=== PATIENT | female | born 1955 | race Two or more races ===

== ENCOUNTER 2019-03-27 18:36 | Emergency (ER) | payer MEDICAID, MEDICARE ==
[~2019-03-27] VITALS: Ht 154.9 cm; Wt 77.3 kg
--- NOTE | 2019-03-27 20:36 | NUR ---
Pt has no change in condition. Pt continues to rate the discomfort in her left eye 7/10. BP remains elelvated. Pt is awaiting provider evaluation.
[2019-03-27] MEDS ORDERED: labetalol 100mg tablet PO STA (21:36)
[2019-03-27] MEDS ORDERED: ibuprofen tablet 400 MG TABLET PO ONE (21:40)
--- NOTE | 2019-03-27 22:37 | NUR ---
Pt reports feeling like headache and pressure in the left eye are significantly improved.
[2019-03-27 23:15] VITALS: BP 168/102
== END 2019-03-27 23:20 | disposition home or self-care (01) ==
LOC: ER 18:37
DX: H11.32 Conjunctival hemorrhage, left eye (principal); I10 Essential (primary) hypertension
CPT/HCPCS: 99284

== ENCOUNTER 2019-04-15 03:21 | Emergency (ER) | payer MEDICARE ==
[~2019-04-15] VITALS: Ht 154.9 cm; Wt 81.8 kg
[2019-04-15 04:08] LABS: BASOPHILS # (AUTO) 0.1 X10'3 (0-0.2); BASOPHILS % (AUTO) 0.8 % (0-1); EOSINOPHILS # (AUTO) 0.6 X10'3 (0-0.9); EOSINOPHILS % (AUTO) 8.7 % (0-6); HEMATOCRIT 40.9 % (35.0-45.0); LYMPHOCYTES # (AUTO) 2.3 X10'3 (1.1-4.8); MEAN CORPUSCULAR HGB CONC 34.3 g/dL (33.0-36.5); MEAN CORPUSCULAR VOLUME 90.6 FL (78-98); MEAN PLATELET VOLUME 9.1 FL (7.4-10.4); MONOCYTES # (AUTO) 0.6 X10'3 (0-0.9); MONOCYTES % (AUTO) 8.8 % (2-12); NEUTROPHILS # (AUTO) 3.6 X10'3 (1.8-7.7); NEUTROPHILS % (AUTO) 49.7 % (42-75); PLATELET COUNT 176 X10'3 (140-440); RED BLOOD COUNT 4.51 X10'6 (4.20-5.60); RED CELL DISTRIBUTION WIDTH 13.2 % (11.5-14.5); WHITE BLOOD COUNT 7.1 X10'3 (4.5-11.0)
[2019-04-15 04:19] LABS: PARTIAL THROMBOPLASTIN TIME 27 SECONDS (22-32)
[2019-04-15 04:32] LABS: ALANINE AMINOTRANSFERASE 19 U/L (12-78); ALBUMIN 3.6 G/DL (3.4-5.0); ALKALINE PHOSPHATASE 109 IU/L (46-116); ANION GAP 8 (8-16); ASPARTATE AMINO TRANSFERASE 0 U/L (10-37); BILIRUBIN,TOTAL 0.2 MG/DL (0.1-1.0); BLOOD UREA NITROGEN 15 MG/DL (7-18); BUN/CREATININE RATIO 19.7 (6.6-38.0); CALCIUM 9.9 MG/DL (8.5-10.1); CHLORIDE 105 MMOL/L (99-107); CREATININE 0.76 MG/DL (0.40-0.90); GLUCOSE 127 MG/DL (70-104); SODIUM 141 MMOL/L (135-145); TOTAL CARBON DIOXIDE 27.6 MMOL/L (24-32); TOTAL PROTEIN 7.2 G/DL (6.4-8.2); eGFR 76 ML/MIN
[2019-04-15] MEDS ORDERED: normal saline 1000ml 1,000 ML IV ONE (04:49)
[2019-04-15] MEDS ORDERED: morphine 4 MG/ML inj SYRINge IV ONE (04:50)
[2019-04-15] MEDS ORDERED: hydrALAZINE 20mg/ml inj. IV ONE (04:50)
[2019-04-15] MEDS ORDERED: hyDRALAzine 10mg tablet PO ONE (04:50)
[2019-04-15] MEDS ORDERED: hyDRALAzine 10mg tablet PO SCH (04:50)
[2019-04-15] MEDS: metoprolol tartrate 1mg/ml inj IV SCH ×3 (05:00→05:20)
[2019-04-15] MEDS ORDERED: iohexol 350MG/ML 100ml bottle IV ONE (05:08)
[2019-04-15] MEDS ORDERED: SUCR1TAB34 PO (06:17)
[2019-04-15 06:36] VITALS: BP 151/91
[2019-04-15 06:36] LABS: LIPASE 177 U/L (73-393)
== END 2019-04-15 06:41 | disposition home or self-care (01) ==
LOC: ER 03:22
DX: R07.89 Other chest pain (principal); I10 Essential (primary) hypertension; Z98.890 Other specified postprocedural states
CPT/HCPCS: 36415; 71045; 71275; 74175; 80053; 83690; 84484; 85025; 85610; 85730; 93005; 96374; 96375; 99284; J0360; J2270; J7030; Q9967; J3490

== ENCOUNTER 2020-06-14 18:47 | Emergency (ER) | payer MEDICARE, BC ==
[~2020-06-14] VITALS: Ht 154.9 cm; Wt 75.9 kg
[~2020-06-14 18:47] MED LIST: SUCR1TAB34 PO
[2020-06-14 19:25] LABS: BASOPHILS # (AUTO) 0.1 X10'3 (0-0.2); BASOPHILS % (AUTO) 0.9 % (0-1); EOSINOPHILS # (AUTO) 0.1 X10'3 (0-0.9); EOSINOPHILS % (AUTO) 1.6 % (0-6); HEMATOCRIT 43.6 % (35.0-45.0); LYMPHOCYTES # (AUTO) 2.2 X10'3 (1.1-4.8); LYMPHOCYTES % (AUTO) 23.3 % (21-51); MEAN CORPUSCULAR HEMOGLOBIN 31.5 PG (27.0-31.0); MEAN CORPUSCULAR HGB CONC 34.5 g/dL (33.0-36.5); MEAN CORPUSCULAR VOLUME 91.3 FL (78-98); MEAN PLATELET VOLUME 9.4 FL (7.4-10.4); MONOCYTES # (AUTO) 0.6 X10'3 (0-0.9); MONOCYTES % (AUTO) 6.8 % (2-12); NEUTROPHILS # (AUTO) 6.3 X10'3 (1.8-7.7); NEUTROPHILS % (AUTO) 67.4 % (42-75); PLATELET COUNT 196 X10'3 (140-440); RED BLOOD COUNT 4.77 X10'6 (4.20-5.60); WHITE BLOOD COUNT 9.3 X10'3 (4.5-11.0)
[2020-06-14] MEDS ORDERED: mag hydrox/Alum hydrox/simeth 30ml oral suspension PO ONE (19:45)
[2020-06-14] MEDS ORDERED: LIDOcaine Viscous 15ml cup MM ONE (19:45)
[2020-06-14 19:47] LABS: ALANINE AMINOTRANSFERASE 31 U/L (12-78); ALBUMIN 4.1 G/DL (3.4-5.0); ALBUMIN/GLOBULIN RATIO 1.1 (1.1-1.5); ALKALINE PHOSPHATASE 98 IU/L (46-116); ANION GAP 12 (8-16); ASPARTATE AMINO TRANSFERASE 22 U/L (10-37); BILIRUBIN,TOTAL 0.6 MG/DL (0.1-1.0); BLOOD UREA NITROGEN 17 MG/DL (7-18); BUN/CREATININE RATIO 19.1 (6.6-38.0); CALCIUM 10.4 MG/DL (8.5-10.1); CHLORIDE 103 MMOL/L (99-107); CREATININE 0.89 MG/DL (0.40-0.90); GLUCOSE 102 MG/DL (70-104); LIPASE 91 U/L (73-393); POTASSIUM 4.8 MMOL/L (3.5-5.1); SODIUM 140 MMOL/L (135-145); TOTAL PROTEIN 7.7 G/DL (6.4-8.2); eGFR 63 ML/MIN
--- NOTE | 2020-06-14 20:00 | NUR ---
PT GIVEN MAALOX AND LIDOCAINE PO. PT REPORTED BRIEF, PARTIAL RELIEF FROM PAIN, BUT PAIN RETURNED SOON AFTERWARD. PT GIVEN MORPHINE 4 MG AND ZOFRAN 4 MG. PT REPORTS SOME RELIEF, BUT IS STILL UNCOMFORTABLE
[2020-06-14] MEDS ORDERED: ondansetron/PF 4mg/2ml inj IV ONE ×2 (20:40→22:25)
[2020-06-14] MEDS ORDERED: morphine 4 MG/ML inj SYRINge IV ONE (20:40)
[2020-06-14] MEDS ORDERED: pantoprazole 40mg Tablet.DR PO ONE (22:20)
[2020-06-14] MEDS ORDERED: famotidine 20mg tablet PO ONE (22:20)
[2020-06-14] MEDS ORDERED: sucralfate 1 gm tablet PO ONE (22:25)
[2020-06-14 22:50] LABS: CLARITY,URINE CLEAR (Clear); COLOR,URINE YELLOW (Yellow); GLUCOSE, URINE NEGATIVE (Neg); KETONES,URINE NEGATIVE (Neg); LEUKOCYTE ESTERASE ,URINE NEGATIVE (Neg); NITRITES, URINE NEGATIVE (Neg); OCCULT BLOOD,URINE TRACE-LYSED (Neg); PH,URINE 7.5 (4.8-8.0); PROTEIN,URINE NEGATIVE (Neg); UROBILINOGEN,URINE 0.2 E.U/dL (0.2-1.0)
[2020-06-14 22:56] LABS: BACTERIA,URINE FEW /HPF (Neg); RBC,URINE 0-2 /HPF (0-2); SQUAMOUS EPITHELIAL CELL,UR FEW /LPF (FEW); UA COLLECTION TYPE CLN CATCH MIDSTREAM; WBC,URINE NONE SEEN /HPF (0-4)
[2020-06-14] MEDS ORDERED: PANT20TA18 PO (23:19)
[2020-06-14] MEDS ORDERED: ONDA4TAB6 PO (23:19)
[2020-06-14 23:39] VITALS: BP 123/77
== END 2020-06-14 23:41 | disposition home or self-care (01) ==
LOC: ER 18:48
DX: R07.89 Other chest pain (principal); R10.84 Generalized abdominal pain; R11.0 Nausea; I10 Essential (primary) hypertension; F17.200 Nicotine dependence, unspecified, uncomplicated; Z87.440 Personal history of urinary (tract) infections; Z98.890 Other specified postprocedural states; Z79.899 Other long term (current) drug therapy
CPT/HCPCS: 36415; 71045; 80053; 81001; 83690; 83880; 84484; 85025; 93005; 96374; 96375; 96376; 99285; J2270; J2405

== ENCOUNTER 2021-03-24 10:02 | Inpatient (IN) | payer MEDICARE, BC ==
[~2021-03-24] VITALS: Ht 152.4 cm; Wt 72.7 kg
[~2021-03-24 10:02] MED LIST changes: +ONDA4TAB6 PO; +PANT20TA18 PO
[2021-03-24] MEDS ORDERED: ALBUTEROL INHALER 1 PUFF/90 MCG INHALER IH STA (10:14)
[2021-03-24] MEDS ORDERED: dexamethasone sod phosphate 10mg/ml inj IV STA (10:14)
[2021-03-24] MEDS ORDERED: acetaminophen 325mg tablet PO ONE (10:40)
[2021-03-24 10:47] LABS: BASOPHILS % (AUTO) 0.2 % (0-1); EOSINOPHILS % (AUTO) 0 % (0-6); HEMATOCRIT 42.8 % (35.0-45.0); HEMOGLOBIN 14.3 g/dl (12.0-16.0); LYMPHOCYTES # (AUTO) 0.4 X10'3 (1.1-4.8); LYMPHOCYTES % (AUTO) 7.2 % (21-51); MEAN CORPUSCULAR HGB CONC 33.3 g/dL (33.0-36.5); MONOCYTES # (AUTO) 0.3 X10'3 (0-0.9); MONOCYTES % (AUTO) 6.9 % (2-12); NEUTROPHILS # (AUTO) 4.3 X10'3 (1.8-7.7); NEUTROPHILS % (AUTO) 85.7 % (42-75); PLATELET COUNT 146 X10'3 (140-440); RED BLOOD COUNT 4.76 X10'6 (4.20-5.60); RED CELL DISTRIBUTION WIDTH 13.6 % (11.5-14.5)
[2021-03-24 11:01] LABS: ALBUMIN 3.2 G/DL (3.4-5.0); ANION GAP 12 (8-16); BLOOD UREA NITROGEN 11 MG/DL (7-18); BUN/CREATININE RATIO 14.5 (6.6-38.0); CALCIUM 8.7 MG/DL (8.5-10.1); CHLORIDE 102 MMOL/L (99-107); CREATININE 0.76 MG/DL (0.40-0.90); GLUCOSE 101 MG/DL (70-104); POTASSIUM 3.6 MMOL/L (3.5-5.1); SODIUM 141 MMOL/L (135-145); TOTAL CARBON DIOXIDE 26.6 MMOL/L (24-32); eGFR 76 ML/MIN
[2021-03-24 11:02] LABS: D-DIMER 1.21 MG/L FEU (0-0.50)
--- NOTE | 2021-03-24 11:37 | NUR ---
BARRERA (DAUGHTER) [phone] PLEASE CALL TO UPDATE WHEN CAN.
[2021-03-24] MEDS ORDERED: iohexol 350MG/ML 100ml bottle IV ONE (12:09)
--- NOTE | 2021-03-24 12:43 | NUR ---
Zoe, pts sister left her contact number:
[2021-03-24] MEDS ORDERED: normal saline 1000ml 1,000 ML IV ONE (12:50)
[2021-03-24] MEDS ORDERED: acetaminophen 325mg tablet PO PRN (14:15)
[2021-03-24] MEDS ORDERED: ondansetron/PF 4mg/2ml inj IV PRN (14:15)
[2021-03-24] MEDS ORDERED: magnesium hydroxide 30ml (MOM) UD suspension PO PRN (14:15)
[2021-03-24] MEDS ORDERED: mag hydrox/Alum hydrox/simeth 30ml oral suspension PO PRN (14:15)
[2021-03-24] MEDS ORDERED: NO HOME MEDS PO (14:16)
--- NOTE | 2021-03-24 19:05 | NUR ---
ALTERNATIVE PHONE NUMBER FOR DAUGHTER BARRERA [phone]
--- NOTE | 2021-03-24 19:10 | NUR ---
GAVE PT HER MEAL TRAY AND DECREASED HER O2 FROM 6LPM NC TO 3LPM NC. SPO2 AFTER CHANGE IS 97%
[2021-03-24] MEDS: docusate sod 100mg capsule PO SCH (20:00)
[2021-03-24 21:30] VITALS: BP 127/85
[2021-03-24] MEDS: enoxaparin 40mg/0.4ml syringe SUBCUT SCH (21:59)
[2021-03-24] MEDS: morphine 2 MG/ML inj. syringe IV PRN (21:59)
[2021-03-24] MEDS: dexamethasone inj 6 MG in normal saline 50ml IV soln 50 ML IV SCH (22:00)
[2021-03-25 02:00] VITALS: BP 118/72
[2021-03-25 06:00] VITALS: BP 159/91
[2021-03-25 06:57] LABS: BASOPHILS % (AUTO) 0.1 % (0-1); EOSINOPHILS % (AUTO) 0 % (0-6); HEMATOCRIT 40.1 % (35.0-45.0); HEMOGLOBIN 13.4 g/dl (12.0-16.0); LYMPHOCYTES # (AUTO) 0.6 X10'3 (1.1-4.8); LYMPHOCYTES % (AUTO) 10.7 % (21-51); MEAN CORPUSCULAR HEMOGLOBIN 30.2 PG (27.0-31.0); MEAN CORPUSCULAR HGB CONC 33.4 g/dL (33.0-36.5); MEAN CORPUSCULAR VOLUME 90.5 FL (78-98); MEAN PLATELET VOLUME 9.3 FL (7.4-10.4); MONOCYTES # (AUTO) 0.4 X10'3 (0-0.9); MONOCYTES % (AUTO) 7.6 % (2-12); NEUTROPHILS # (AUTO) 4.5 X10'3 (1.8-7.7); NEUTROPHILS % (AUTO) 81.6 % (42-75); PLATELET COUNT 155 X10'3 (140-440); RED BLOOD COUNT 4.43 X10'6 (4.20-5.60); RED CELL DISTRIBUTION WIDTH 13.3 % (11.5-14.5); WHITE BLOOD COUNT 5.5 X10'3 (4.5-11.0)
[2021-03-25 07:29] LABS: ALBUMIN 2.5 G/DL (3.4-5.0); ANION GAP 12 (8-16); BLOOD UREA NITROGEN 21 MG/DL (7-18); BUN/CREATININE RATIO 28.4 (6.6-38.0); CALCIUM 8.7 MG/DL (8.5-10.1); CHLORIDE 108 MMOL/L (99-107); CREATININE 0.74 MG/DL (0.40-0.90); GLUCOSE 141 MG/DL (70-104); POTASSIUM 3.9 MMOL/L (3.5-5.1); SODIUM 144 MMOL/L (135-145); TOTAL CARBON DIOXIDE 23.9 MMOL/L (24-32); eGFR 78 ML/MIN
[2021-03-25] MEDS: docusate sod 100mg capsule PO SCH ×2 (07:53→19:49)
[2021-03-25] MEDS: enoxaparin 40mg/0.4ml syringe SUBCUT SCH ×2 (07:53→19:48)
[2021-03-25] MEDS: dexamethasone inj 6 MG in normal saline 50ml IV soln 50 ML IV SCH ×2 (07:54→19:49)
[2021-03-25 10:00] VITALS: BP 147/106
[2021-03-25 15:00] VITALS: BP 138/76
[2021-03-25 18:00] VITALS: BP 141/89
--- NOTE | 2021-03-25 18:30 | NUR ---
Patient in room [facility]TH[facility] 4006. I have received report from LUCIAN Dunaway and had the opportunity to ask questions and assume patient care. Patient is laying on hospital bed, just finished dinner. She complains of a headache 12/21, I advised her I would bring her some Tylenol and more water.
[2021-03-25 22:00] VITALS: BP 136/77
[2021-03-26 02:00] VITALS: BP 129/75
[2021-03-26 06:30] VITALS: BP 146/80
--- NOTE | 2021-03-26 06:49 | NUR ---
Problems reprioritized. Patient report given, questions answered & plan of care reviewed with LUCIAN Banuelos.
[2021-03-26] MEDS: docusate sod 100mg capsule PO SCH ×2 (08:33→19:23)
[2021-03-26 08:34] LABS: BASOPHILS % (AUTO) 0 % (0-1); EOSINOPHILS % (AUTO) 0 % (0-6); HEMATOCRIT 37.7 % (35.0-45.0); LYMPHOCYTES # (AUTO) 0.7 X10'3 (1.1-4.8); LYMPHOCYTES % (AUTO) 7.3 % (21-51); MEAN CORPUSCULAR HEMOGLOBIN 30.6 PG (27.0-31.0); MEAN CORPUSCULAR HGB CONC 34.6 g/dL (33.0-36.5); MEAN CORPUSCULAR VOLUME 88.4 FL (78-98); MEAN PLATELET VOLUME 9.8 FL (7.4-10.4); MONOCYTES # (AUTO) 0.7 X10'3 (0-0.9); MONOCYTES % (AUTO) 7.8 % (2-12); NEUTROPHILS # (AUTO) 7.7 X10'3 (1.8-7.7); NEUTROPHILS % (AUTO) 84.9 % (42-75); PLATELET COUNT 183 X10'3 (140-440); RED BLOOD COUNT 4.27 X10'6 (4.20-5.60); RED CELL DISTRIBUTION WIDTH 13.7 % (11.5-14.5)
[2021-03-26] MEDS: dexamethasone inj 6 MG in normal saline 50ml IV soln 50 ML IV SCH ×2 (08:34→19:23)
[2021-03-26] MEDS: enoxaparin 40mg/0.4ml syringe SUBCUT SCH ×2 (08:34→19:24)
[2021-03-26] MEDS: morphine 2 MG/ML inj. syringe IV PRN ×3 (08:35→19:37)
[2021-03-26 09:12] LABS: ALBUMIN 2.6 G/DL (3.4-5.0); ANION GAP 13 (8-16); BLOOD UREA NITROGEN 19 MG/DL (7-18); BUN/CREATININE RATIO 28.8 (6.6-38.0); CALCIUM 8.3 MG/DL (8.5-10.1); CHLORIDE 109 MMOL/L (99-107); CREATININE 0.66 MG/DL (0.40-0.90); GLUCOSE 116 MG/DL (70-104); POTASSIUM 3.8 MMOL/L (3.5-5.1); SODIUM 146 MMOL/L (135-145); TOTAL CARBON DIOXIDE 24.1 MMOL/L (24-32); eGFR 89 ML/MIN
[2021-03-26 10:00] VITALS: BP 156/88
[2021-03-26] MEDS ORDERED: guaiFENesin/DM/phenylephrine syrup 120ml bottle PO PRN (13:55)
[2021-03-26] MEDS: benzonatate 100mg capsule PO PRN (15:31)
--- NOTE | 2021-03-26 18:36 | NUR ---
Problems reprioritized. Patient report given, questions answered & plan of care reviewed with Jeny EPSTEIN.
[2021-03-26] MEDS: guaiFENesin/DM 10ml UD oral syrup PO PRN (19:23)
[2021-03-26 22:00] VITALS: BP 121/68
[2021-03-27 02:00] VITALS: BP 145/82
--- NOTE | 2021-03-27 06:21 | NUR ---
Problems reprioritized. Patient report given, questions answered & plan of care reviewed with Adela EPSTEIN.
[2021-03-27 06:49] VITALS: BP 156/78
[2021-03-27] MEDS: enoxaparin 40mg/0.4ml syringe SUBCUT SCH ×2 (07:56→20:02)
[2021-03-27] MEDS: dexamethasone inj 6 MG in normal saline 50ml IV soln 50 ML IV SCH ×2 (07:56→20:02)
[2021-03-27] MEDS: docusate sod 100mg capsule PO SCH ×2 (07:56→20:02)
[2021-03-27] MEDS: benzonatate 100mg capsule PO PRN ×3 (08:04→21:54)
[2021-03-27] MEDS: guaiFENesin/DM 10ml UD oral syrup PO PRN ×3 (08:04→21:54)
[2021-03-27 09:01] LABS: BASOPHILS % (AUTO) 0.2 % (0-1); EOSINOPHILS % (AUTO) 0.1 % (0-6); HEMATOCRIT 38.8 % (35.0-45.0); HEMOGLOBIN 12.9 g/dl (12.0-16.0); LYMPHOCYTES # (AUTO) 0.8 X10'3 (1.1-4.8); LYMPHOCYTES % (AUTO) 13.3 % (21-51); MEAN CORPUSCULAR HGB CONC 33.2 g/dL (33.0-36.5); MEAN CORPUSCULAR VOLUME 90.3 FL (78-98); MEAN PLATELET VOLUME 9.6 FL (7.4-10.4); MONOCYTES # (AUTO) 0.6 X10'3 (0-0.9); MONOCYTES % (AUTO) 10.8 % (2-12); NEUTROPHILS # (AUTO) 4.5 X10'3 (1.8-7.7); NEUTROPHILS % (AUTO) 75.6 % (42-75); PLATELET COUNT 194 X10'3 (140-440); RED BLOOD COUNT 4.29 X10'6 (4.20-5.60); RED CELL DISTRIBUTION WIDTH 13.3 % (11.5-14.5)
[2021-03-27 09:16] LABS: ALBUMIN 2.6 G/DL (3.4-5.0); ANION GAP 8 (8-16); BLOOD UREA NITROGEN 15 MG/DL (7-18); BUN/CREATININE RATIO 20.8 (6.6-38.0); CALCIUM 8.6 MG/DL (8.5-10.1); CHLORIDE 109 MMOL/L (99-107); CREATININE 0.72 MG/DL (0.40-0.90); GLUCOSE 144 MG/DL (70-104); POTASSIUM 3.5 MMOL/L (3.5-5.1); SODIUM 143 MMOL/L (135-145); TOTAL CARBON DIOXIDE 26.4 MMOL/L (24-32); eGFR 81 ML/MIN
[2021-03-27 09:45] VITALS: BP 151/77
[2021-03-27] MEDS: morphine 2 MG/ML inj. syringe IV PRN ×2 (15:39→20:01)
[2021-03-27 18:00] VITALS: BP 146/76
[2021-03-27 22:00] VITALS: BP 142/75
[2021-03-28] VITALS (12 sets, daily range): BP systolic 110–189; BP diastolic 76–104
--- NOTE | 2021-03-28 06:23 | NUR ---
Problems reprioritized. Patient report given, questions answered & plan of care reviewed with Nelly EPSTEIN.
--- NOTE | 2021-03-28 06:47 | NUR ---
Patient in room [facility]TH[facility] 4006. I have received report from irwin saunders and had the opportunity to ask questions and assume patient care.
[2021-03-28 07:59] LABS: BASOPHILS % (AUTO) 0.3 % (0-1); EOSINOPHILS % (AUTO) 0 % (0-6); HEMATOCRIT 39.3 % (35.0-45.0); HEMOGLOBIN 13.3 g/dl (12.0-16.0); LYMPHOCYTES # (AUTO) 0.9 X10'3 (1.1-4.8); LYMPHOCYTES % (AUTO) 15.6 % (21-51); MEAN CORPUSCULAR HEMOGLOBIN 30.3 PG (27.0-31.0); MEAN CORPUSCULAR HGB CONC 33.8 g/dL (33.0-36.5); MEAN CORPUSCULAR VOLUME 89.6 FL (78-98); MEAN PLATELET VOLUME 9.7 FL (7.4-10.4); MONOCYTES # (AUTO) 0.6 X10'3 (0-0.9); MONOCYTES % (AUTO) 9.9 % (2-12); NEUTROPHILS # (AUTO) 4.3 X10'3 (1.8-7.7); NEUTROPHILS % (AUTO) 74.2 % (42-75); PLATELET COUNT 215 X10'3 (140-440); RED BLOOD COUNT 4.39 X10'6 (4.20-5.60); RED CELL DISTRIBUTION WIDTH 13.4 % (11.5-14.5); WHITE BLOOD COUNT 5.8 X10'3 (4.5-11.0)
[2021-03-28 08:08] LABS: ALBUMIN 2.5 G/DL (3.4-5.0); ANION GAP 12 (8-16); BLOOD UREA NITROGEN 15 MG/DL (7-18); BUN/CREATININE RATIO 24.6 (6.6-38.0); CALCIUM 8.3 MG/DL (8.5-10.1); CHLORIDE 107 MMOL/L (99-107); CREATININE 0.61 MG/DL (0.40-0.90); GLUCOSE 100 MG/DL (70-104); SODIUM 144 MMOL/L (135-145); TOTAL CARBON DIOXIDE 25.5 MMOL/L (24-32); eGFR > 90 ML/MIN
[2021-03-28] MEDS: docusate sod 100mg capsule PO SCH ×2 (08:33→20:00)
[2021-03-28] MEDS: enoxaparin 40mg/0.4ml syringe SUBCUT SCH ×2 (08:33→20:09)
[2021-03-28] MEDS: dexamethasone inj 6 MG in normal saline 50ml IV soln 50 ML IV SCH ×2 (08:33→20:09)
[2021-03-28 08:47] LABS: PLATELET ESTIMATE NORMAL; TOTAL CELLS COUNTED 100
--- NOTE | 2021-03-28 09:28 | NUR ---
O2 Sat at rest on room air:_95__% If below 89%: Recovery O2 Sat at rest on ___LPM:___%:___% via (mask/nasal cannula, etc..) No further documentation is necessary. If O2 Sat did not drop below 89% on room air,ambulate patient on room air. O2 Sat while ambulating on room air:_95__% Recovery O2 Sat while ambulating on ___LPM:___% No further documentation is necessary. If patient does not drop below 89% while ambulating, he/she does not qualify for home O2.
[2021-03-28] MEDS ORDERED: DEXA2TAB PO (10:59)
[2021-03-28] MEDS ORDERED: hydrALAZINE 20mg/ml inj. IV ONE (12:10)
--- NOTE | 2021-03-28 12:24 | NUR ---
Initial: Pt admit DX COVID-19, PNA, and hypoxia on 2L NC per EMR. PO ~75% avg heart healthy diet meeting estimated needs. LBM 03/26 receiving routine colace. No nutrition intervention at this time. Will continue to monitor. Rec: 1. continue heart healthy diet 2. routine bowel care 3. scaled wt this admit; subsequent weekly wts Addendum: 03/28/21 at [address] Amended: Links added.
[2021-03-28] MEDS ORDERED: amLODIPine 5mg tablet PO ONE (13:05)
--- NOTE | 2021-03-28 14:15 | NUR ---
PAGED DR MANZANO RE: PAGER ID: [phone] MESSAGE: ISAIAS COTA. BP 163/100 HR 67. SAMY [id number]
[2021-03-28] MEDS ORDERED: LORazepam 1 MG tablet PO ONE (14:20)
[2021-03-28] MEDS: morphine 2 MG/ML inj. syringe IV PRN (14:36)
[2021-03-28] MEDS ORDERED: lisinopril 20mg tablet PO SCH (15:25)
[2021-03-28] MEDS ORDERED: LORazepam 1 MG tablet PO PRN (16:20)
[2021-03-28] MEDS ORDERED: hydrALAZINE 20mg/ml inj. IV PRN (17:55)
[2021-03-28] MEDS ORDERED: cloNIDine 0.1 mg tablet PO ONE (17:55)
[2021-03-29 03:04] VITALS: BP 151/99
[2021-03-29 06:00] VITALS: BP 134/88
--- NOTE | 2021-03-29 06:37 | NUR ---
Problems reprioritized. Patient report given, questions answered & plan of care reviewed with Gideon EPSTEIN.
[2021-03-29] MEDS: dexamethasone inj 6 MG in normal saline 50ml IV soln 50 ML IV SCH (07:36)
[2021-03-29] MEDS: docusate sod 100mg capsule PO SCH (07:42)
[2021-03-29] MEDS: enoxaparin 40mg/0.4ml syringe SUBCUT SCH (07:42)
[2021-03-29] MEDS ORDERED: lisinopril 20mg tablet PO SCH (08:00)
[2021-03-29 08:06] LABS: BASOPHILS % (AUTO) 0.6 % (0-1); EOSINOPHILS % (AUTO) 0 % (0-6); HEMATOCRIT 43.1 % (35.0-45.0); HEMOGLOBIN 14.4 g/dl (12.0-16.0); LYMPHOCYTES # (AUTO) 1.1 X10'3 (1.1-4.8); LYMPHOCYTES % (AUTO) 17.4 % (21-51); MEAN CORPUSCULAR HEMOGLOBIN 30.2 PG (27.0-31.0); MEAN CORPUSCULAR HGB CONC 33.4 g/dL (33.0-36.5); MEAN CORPUSCULAR VOLUME 90.4 FL (78-98); MEAN PLATELET VOLUME 9.3 FL (7.4-10.4); MONOCYTES # (AUTO) 0.6 X10'3 (0-0.9); NEUTROPHILS # (AUTO) 4.6 X10'3 (1.8-7.7); PLATELET COUNT 257 X10'3 (140-440); RED BLOOD COUNT 4.76 X10'6 (4.20-5.60); RED CELL DISTRIBUTION WIDTH 13.5 % (11.5-14.5); WHITE BLOOD COUNT 6.3 X10'3 (4.5-11.0)
[2021-03-29 08:20] LABS: ALBUMIN 2.9 G/DL (3.4-5.0); ANION GAP 10 (8-16); BLOOD UREA NITROGEN 19 MG/DL (7-18); BUN/CREATININE RATIO 27.5 (6.6-38.0); CALCIUM 8.8 MG/DL (8.5-10.1); CHLORIDE 107 MMOL/L (99-107); CREATININE 0.69 MG/DL (0.40-0.90); GLUCOSE 98 MG/DL (70-104); POTASSIUM 4.2 MMOL/L (3.5-5.1); SODIUM 144 MMOL/L (135-145); TOTAL CARBON DIOXIDE 27.5 MMOL/L (24-32); eGFR 85 ML/MIN
[2021-03-29 11:00] VITALS: BP 140/84
[2021-03-29] MEDS ORDERED: ASPI81TA52 PO (11:35)
[2021-03-29] MEDS ORDERED: LISI20TA28 PO (11:35)
== END 2021-03-29 15:40 | disposition home or self-care (01) | DRG 177 ==
LOC: ER 10:03 → ED HOLD 14:18 → ORTHO 4S 21:32
PROVIDERS: ADMIT Family Medicine; ATTEND Family Medicine
PROC: B32T1ZZ Computerized Tomography (CT Scan) of Left Pulmonary Artery using Low Osmolar Contrast (ICD-10-PCS; principal; 2021-03-24)
PROC: B3201ZZ Computerized Tomography (CT Scan) of Thoracic Aorta using Low Osmolar Contrast (ICD-10-PCS; 2021-03-24)
PROC: B32S1ZZ Computerized Tomography (CT Scan) of Right Pulmonary Artery using Low Osmolar Contrast (ICD-10-PCS; 2021-03-24)
DX: U07.1 COVID-19 (principal); J96.01 Acute respiratory failure with hypoxia; J12.82 Pneumonia due to coronavirus disease 2019; K21.9 Gastro-esophageal reflux disease without esophagitis; I10 Essential (primary) hypertension; Z79.82 Long term (current) use of aspirin; Z87.440 Personal history of urinary (tract) infections
CPT/HCPCS: 36415; 71045; 71275; 80048; 83605; 85007; 85025; 85379; 87040; 87081; 87635; 94640; 94760; 96361; 96374; 99285; C9803; G0378; J0360; J1100; J1650; J2270; J7030; Q9967

== ENCOUNTER 2022-07-03 11:03 | Day surgery (SDC) | payer MEDICARE, BC ==
[~2022-07-03] VITALS: Ht 154.9 cm; Wt 72.3 kg
[~2022-07-03 11:03] MED LIST changes: +ASPI81TA52 PO; +DEXA2TAB PO; +LISI20TA28 PO; -ONDA4TAB6 PO; -PANT20TA18 PO; -SUCR1TAB34 PO
[2022-07-03 11:20] VITALS: BP 182/99
[2022-07-03] MEDS ORDERED: METO-384 PO (11:27)
[2022-07-03] MEDS ORDERED: HYDR25TA5 PO (11:28)
[2022-07-03] MEDS ORDERED: MIDAZolam 1 MG/ML 5ML VIAL ONE (11:53)
[2022-07-03] MEDS ORDERED: fentaNYL/PF 50MCG/1 ML 2ML syringe ONE (11:53)
[2022-07-03 13:08] VITALS: BP 149/99
[2022-07-03 13:18] VITALS: BP 151/96
[2022-07-03 13:28] VITALS: BP 153/92
[2022-07-03 13:38] VITALS: BP 158/92
== END 2022-07-03 13:45 | disposition home or self-care (01) ==
LOC: GI LAB 11:03
PROVIDERS: ATTEND Internal Medicine Gastroenterology
DX: Z12.11 Encounter for screening for malignant neoplasm of colon (principal); D12.8 Benign neoplasm of rectum; K57.30 Diverticulosis of large intestine without perforation or abscess without bleeding; K64.1 Second degree hemorrhoids; I10 Essential (primary) hypertension; Z87.891 Personal history of nicotine dependence; Z86.010 Personal history of colon polyps; Z72.89 Other problems related to lifestyle; Z79.899 Other long term (current) drug therapy
CPT/HCPCS: 45385; 88305; 99153; C1889; G0500; J2250; J3010; J7030; Z7512; 99152; A4620

== ENCOUNTER 2022-10-27 10:55 | Observation (INO) | payer MEDICARE, BC ==
[~2022-10-27] VITALS: Ht 162.6 cm; Wt 78.2 kg
[~2022-10-27 10:55] MED LIST changes: -ASPI81TA52 PO; -DEXA2TAB PO; +HYDR25TA5 PO; -LISI20TA28 PO; +METO-384 PO
[2022-10-27 12:49] LABS: BASOPHILS % (AUTO) 0.9 % (0-1); EOSINOPHILS # (AUTO) 0.3 X10'3 (0-0.9); EOSINOPHILS % (AUTO) 4.4 % (0-6); HEMATOCRIT 42.2 % (35.0-45.0); HEMOGLOBIN 14.3 g/dl (12.0-16.0); LYMPHOCYTES # (AUTO) 1.6 X10'3 (1.1-4.8); LYMPHOCYTES % (AUTO) 27.3 % (21-51); MEAN CORPUSCULAR HEMOGLOBIN 30.8 PG (27.0-31.0); MEAN CORPUSCULAR HGB CONC 33.9 g/dL (33.0-36.5); MEAN CORPUSCULAR VOLUME 90.9 FL (78-98); MEAN PLATELET VOLUME 8.9 FL (7.4-10.4); MONOCYTES # (AUTO) 0.5 X10'3 (0-0.9); MONOCYTES % (AUTO) 8.2 % (2-12); NEUTROPHILS # (AUTO) 3.4 X10'3 (1.8-7.7); NEUTROPHILS % (AUTO) 59.2 % (42-75); PLATELET COUNT 188 X10'3 (140-440); RED BLOOD COUNT 4.64 X10'6 (4.20-5.60); RED CELL DISTRIBUTION WIDTH 13.8 % (11.5-14.5); WHITE BLOOD COUNT 5.8 X10'3 (4.5-11.0)
[2022-10-27 12:52] LABS: ALANINE AMINOTRANSFERASE 30 U/L (12-78); ALBUMIN 3.6 G/DL (3.4-5.0); ALBUMIN/GLOBULIN RATIO 1.2 (1.1-1.5); ALKALINE PHOSPHATASE 82 IU/L (46-116); ANION GAP 8 (8-16); ASPARTATE AMINO TRANSFERASE 19 U/L (10-37); BILIRUBIN,TOTAL 0.3 MG/DL (0.1-1.0); BLOOD UREA NITROGEN 12 MG/DL (7-18); BUN/CREATININE RATIO 19.7 (10.0-20.0); CALCIUM 9.1 MG/DL (8.5-10.1); CHLORIDE 105 MMOL/L (99-107); CREATININE 0.61 MG/DL (0.40-0.90); GLUCOSE 96 MG/DL (70-104); POTASSIUM 3.4 MMOL/L (3.5-5.1); SODIUM 141 MMOL/L (135-145); TOTAL CARBON DIOXIDE 28.5 MMOL/L (24-32); TOTAL PROTEIN 6.7 G/DL (6.4-8.2); eGFR > 90 ML/MIN
[2022-10-27] MEDS ORDERED: labetalol injection 250 MG in normal saline 250ml IV soln 200 ML IV PRN (15:05)
[2022-10-27] MEDS ORDERED: AMLO2.5T5 PO (15:56)
[2022-10-27] MEDS ORDERED: magnesium 4gm in 100ml NS 100 ML IV PRN (16:20)
[2022-10-27] MEDS ORDERED: ondansetron/PF 4mg/2ml inj IV PRN (16:20)
[2022-10-27] MEDS ORDERED: acetaminophen 325mg tablet PO PRN (16:20)
[2022-10-27] MEDS ORDERED: magnesium 2GM in 50ml NS 50 ML IV PRN (16:20)
[2022-10-27] MEDS ORDERED: potassium Cl 40MEQ/1/2NS 520ml 520 ML IV PRN (16:20)
[2022-10-27] MEDS ORDERED: potassium Cl 20 mEq SR tablet PO PRN (16:20)
[2022-10-27] MEDS ORDERED: magnesium Cl slow-release 64mg tablet PO PRN (16:20)
[2022-10-27] MEDS: K and/or MAG REPLACEMENT MC SCH (20:00)
[2022-10-27] MEDS: potassium Cl 20 mEq SR tablet PO PRN (20:06)
[2022-10-27] MEDS: lisinopril 10 MG tablet PO SCH (21:55)
[2022-10-27] MEDS: amLODIPine 2.5mg tablet PO SCH (21:55)
[2022-10-28 01:55] VITALS: BP 160/100
[2022-10-28] MEDS: potassium Cl 20 mEq SR tablet PO PRN (03:18)
--- NOTE | 2022-10-28 03:35 | NUR ---
Page Sent to MESSAGE: pt in [id number] [facility] [facility] has b/p of 186/93 with hr of 72 .[facility] [id number]
[2022-10-28] MEDS ORDERED: hydrALAZINE 20mg/ml inj. IV PRN (03:40)
[2022-10-28 06:00] VITALS: BP 140/81
--- NOTE | 2022-10-28 06:49 | NUR ---
Problems reprioritized. Patient report given, questions answered & plan of care reviewed with Demetria EPSTEIN.
[2022-10-28 07:33] LABS: BASOPHILS % (AUTO) 0.6 % (0-1); EOSINOPHILS # (AUTO) 0.2 X10'3 (0-0.9); EOSINOPHILS % (AUTO) 3.5 % (0-6); HEMATOCRIT 39.3 % (35.0-45.0); HEMOGLOBIN 13.4 g/dl (12.0-16.0); LYMPHOCYTES # (AUTO) 1.3 X10'3 (1.1-4.8); LYMPHOCYTES % (AUTO) 24.2 % (21-51); MEAN CORPUSCULAR HEMOGLOBIN 30.8 PG (27.0-31.0); MEAN CORPUSCULAR VOLUME 90.7 FL (78-98); MONOCYTES # (AUTO) 0.5 X10'3 (0-0.9); MONOCYTES % (AUTO) 8.6 % (2-12); NEUTROPHILS # (AUTO) 3.5 X10'3 (1.8-7.7); NEUTROPHILS % (AUTO) 63.1 % (42-75); PLATELET COUNT 179 X10'3 (140-440); RED BLOOD COUNT 4.34 X10'6 (4.20-5.60); RED CELL DISTRIBUTION WIDTH 13.9 % (11.5-14.5); WHITE BLOOD COUNT 5.6 X10'3 (4.5-11.0)
[2022-10-28 07:41] LABS: ALBUMIN 3.3 G/DL (3.4-5.0); ANION GAP 9 (8-16); BLOOD UREA NITROGEN 13 MG/DL (7-18); BUN/CREATININE RATIO 21.7 (10.0-20.0); CALCIUM 9.3 MG/DL (8.5-10.1); CHLORIDE 106 MMOL/L (99-107); GLUCOSE 104 MG/DL (70-104); MAGNESIUM 2.1 MG/DL (1.5-2.4); POTASSIUM 3.5 MMOL/L (3.5-5.1); SODIUM 141 MMOL/L (135-145); TOTAL CARBON DIOXIDE 26.1 MMOL/L (24-32); eGFR > 90 ML/MIN
[2022-10-28] MEDS ORDERED: metoprolol succinate 25mg (24-HOUR) SR. Tablet PO SCH (08:00)
[2022-10-28] MEDS: K and/or MAG REPLACEMENT MC SCH (08:00)
[2022-10-28 08:24] VITALS: BP_SYST 140
[2022-10-28] MEDS: amLODIPine 2.5mg tablet PO SCH (08:24)
[2022-10-28] MEDS: lisinopril 10 MG tablet PO SCH (08:24)
[2022-10-28] MEDS ORDERED: LISI10TA27 PO (10:40)
[2022-10-28] MEDS ORDERED: AMLO5TAB4 PO (10:40)
--- NOTE | 2022-10-28 11:45 | NUR ---
Discharge instructions discussed with pt and daughter. all questions answered. pt and daughter state they understand all instructions. pt ambulated on own leaving unit.
== END 2022-10-28 12:01 | disposition home or self-care (01) ==
LOC: ER 10:55 → ED HOLD 16:20 → EDBEDREQ 10-28 00:19 → PCU 3S 10-28 01:45
PROVIDERS: ADMIT Internal Medicine; ATTEND Internal Medicine
DX: I16.0 Hypertensive urgency (principal); I73.9 Peripheral vascular disease, unspecified; E87.6 Hypokalemia; I70.1 Atherosclerosis of renal artery; F17.210 Nicotine dependence, cigarettes, uncomplicated; I10 Essential (primary) hypertension; Z79.899 Other long term (current) drug therapy
CPT/HCPCS: 36415; 71045; 80048; 80053; 83735; 83880; 84484; 85025; 87081; 93005; 96365; 96366; 96375; 99285; G0378; J0360; J3490; J7050